=== PATIENT | female | born 1950 | race African-American/Black ===

== ENCOUNTER 2019-06-30 05:32 | Emergency (ER) | payer MEDICARE, OTHER ==
[2019-06-30 06:46] LABS: ABSOLUTE BASOPHILS # (AUTO) 0.1 10^3/uL (0.0-0.2); ABSOLUTE EOSINOPHILS # (AUTO) 0.2 10^3/uL (0.0-0.6); ABSOLUTE LYMPHOCYTES (AUTO) 1.8 10^3/uL (0.5-4.7); ABSOLUTE MONOCYTES (AUTO) 0.4 10^3/uL (0.1-1.4); ABSOLUTE NEUT (AUTO) 3.8 10^3/uL (1.7-8.2); BASOPHILS % (AUTO) 1.4 % (0-2); EOSINOPHILS % (AUTO) 2.8 % (0-6); HEMATOCRIT 39.5 % (36.0-47.0); HEMOGLOBIN 13.1 g/dL (12.0-15.5); LYMPHOCYTES % (AUTO) 28.8 % (13-45); MEAN CORPUSCULAR HEMOGLOBIN 27.1 pg (27.0-33.4); MEAN CORPUSCULAR HGB CONC 33.1 g/dL (32.0-36.0); MEAN CORPUSCULAR VOLUME 82 fl (80-97); MONOCYTES % (AUTO) 6.8 % (3-13); PLATELET COUNT 220 10^3/uL (150-450); RED BLOOD COUNT 4.81 10^6/uL (3.72-5.28); RED CELL DISTRIBUTION WIDTH 15.4 % (11.5-14.0); SEGMENTED NEUTROPHILS % (AUTO) 60.2 % (42-78); TOTAL CELLS COUNTED % (AUTO) 100 %; WHITE BLOOD COUNT 6.4 10^3/uL (4.0-10.5)
--- NOTE | 2019-06-30 06:57 | RADIOLOGY REPORT (SQ) ---
Chest 2 view on 06/30/2019 at 6:42 AM CLINICAL INDICATION: Chest pain COMPARISON: 11/15/2015 FINDINGS: There is evidence of calcified granulomatous disease in the chest. The lungs are otherwise clear. Cardiac, hilar and mediastinal contours are within normal limits. Pulmonary vascularity is within normal limits. Degenerative changes are noted in the spine. IMPRESSION: No acute disease.
[2019-06-30 07:10] LABS: ALBUMIN 4.2 g/dL (3.5-5.0); ALKALINE PHOSPHATASE 73 U/L (38-126); ANION GAP 9 (5-19); ASPARTATE AMINO TRANSFERASE 42 U/L (14-36); BILIRUBIN,TOTAL 0.5 mg/dL (0.2-1.3); BLOOD UREA NITROGEN 13 mg/dL (7-20); CALCIUM 9.7 mg/dL (8.4-10.2); CARBON DIOXIDE 26 mmol/L (22-30); CHLORIDE 106 mmol/L (98-107); CREATINE KINASE 1133 U/L (30-135); GLUCOSE 114 mg/dL (75-110); POTASSIUM 4.1 mmol/L (3.6-5.0); TOTAL PROTEIN 7.6 g/dL (6.3-8.2)
[2019-06-30 07:22] LABS: CREATINE KINASE MB 8.11 ng/mL (<4.55); TROPONIN I < 0.012 ng/mL
--- NOTE | 2019-06-30 08:31 | ER Document Report ---
ED General - General Chief Complaint: Palpitations Stated Complaint: REPORTS RAPID HEART RATE,ABDOMINAL PAIN Time Seen by Provider: 06/30/19 08:14 Mode of Arrival: Ambulatory Information source: Patient TRAVEL OUTSIDE OF THE [place] IN LAST 30 DAYS: No - HPI Onset: Other - over the last 3 days Onset/Duration: Gradual Quality of pain: Burning Severity: Moderate Pain Level: 3 Associated symptoms: Chest pain, Other - burning in esophagus and mild pain with swallowing Exacerbated by: Food Relieved by: Denies Similar symptoms previously: No Recently seen / treated by doctor: No Notes: 69 year old female with a history of HTN and Hypothyroidism here for 3 days of a burning pain in her throat which moves down to her stomach. She has mild chest pain as well but she denies nausea, vomiting, radiation of chest pain, fevers, chills, sweats, shortness of breath, productive cough. The patient has no cardiac or pulmonary history but she has had her gallbladder removed. The patient says she had a normal stress test many years ago. The patient has never felt like this before. She tells me she was told by her PCP she may be developing CHF but she denies new leg edema or shortness of breath although she does sleep upright some. - Related Data Allergies/Adverse Reactions: clindamycin [Clindamycin] Allergy (Verified 09/22/11 09:09) diphenhydramine HCl [From Benadryl] Allergy (Verified 09/22/11 09:09) Home Medications: synthroid. baby asa. ziac Past Medical History - General Information source: Patient - Social History Smoking Status: Never Smoker Frequency of alcohol use: None Drug Abuse: None Family History: Reviewed & Not Pertinent Patient has suicidal ideation: No Patient has homicidal ideation: No - Past Medical History Cardiac Medical History: Reports: Hx Hypertension Pulmonary Medical History: Reports: None EENT Medical History: Reports: None Neurological Medical History: Reports: None Endocrine Medical History: Reports: Hx Hypothyroidism Renal/ Medical History: Reports: None Malignancy Medical History: Reports: None GI Medical History: Reports: None Musculoskeletal Medical History: Reports None Past Surgical History: Reports: Hx Cholecystectomy, Hx Hysterectomy - Immunizations Hx Diphtheria, Pertussis, Tetanus Vaccination: Yes Review of Systems - Review of Systems Constitutional: No symptoms reported EENT: No symptoms reported Cardiovascular: Chest pain Respiratory: No symptoms reported Gastrointestinal: Other - discomfort when swallowing Genitourinary: No symptoms reported Female Genitourinary: No symptoms reported Musculoskeletal: No symptoms reported Skin: No symptoms reported Hematologic/Lymphatic: No symptoms reported Neurological/Psychological: No symptoms reported Physical Exam - Vital signs Vitals: Temp Pulse Resp BP Pulse Ox 97.4 F 64 16 147/74 H 97 06/30/19 05:38 06/30/19 05:38 06/30/19 05:38 06/30/19 05:38 06/30/19 05:38 - Notes Notes: GENERAL: Well-appearing, well-nourished and in no acute distress. HEAD: Atraumatic, normocephalic. EYES: Pupils equal round and reactive to light, extraocular movements intact, sclera anicteric, conjunctiva are normal. ENT: TMs normal, nares patent, oropharynx clear without exudates. Moist mucous membranes. NECK: Normal range of motion, supple without lymphadenopathy or JVD. LUNGS: Breath sounds clear to auscultation bilaterally and equal. No wheezes rales or rhonchi. HEART: Regular rate and rhythm without murmurs, rubs or gallops. ABDOMEN: Soft, nontender, normoactive bowel sounds. No guarding, no rebound. No masses appreciated. EXTREMITIES: Normal range of motion, no pitting or edema. No clubbing or cyanosis. NEUROLOGICAL: Cranial nerves II through XII grossly intact. Normal speech, normal gait. PSYCH: Normal mood, normal affect. SKIN: Warm, Dry, normal turgor, no rashes or lesions noted. Course - Re-evaluation Re-evalutation: 06/30/19 08:38 The patient does not have a lot of risk factors for ACS. The patient has had a negative stress test but it sounds like it was many years ago. EKG today shows diffuse T wave inversions but I have no old EKGs for comparison. Patient has had 3 days of chest burning which she thinks is coming from her Esophagus. The patient's Trop is completely negative but her CPK is elevated (although patient is not having muscle cramps or pains). Patient's BNP and chest Xray are normal. 06/30/19 09:54 The patient says her symptoms have gone away after a GI Cocktail. It sounds like her symptoms are from GERD. Patient told to start taking a PPI and to follow up with her PCP and possibly with GI and Cardiology. Patient has T wave inversions which I am not sure are old or new. Patient understood everything that was done today and the need for her to follow up. - Vital Signs Vital signs: Temp Pulse Resp BP Pulse Ox 97.4 F 64 16 147/74 H 97 06/30/19 05:38 06/30/19 05:38 06/30/19 05:38 06/30/19 05:38 06/30/19 05:38 - Laboratory Result Diagrams: 06/30/19 06:23 06/30/19 06:23 Laboratory results interpreted by me: 06/30/19 06/30/19 06/30/19 06:23 06:23 06:23 RDW 15.4 H Glucose 114 H AST 42 H Creatine Kinase 1133 H CK-MB (CK-2) 8.11 H - EKG Interpretation by Me EKG shows normal: Sinus rhythm, [place], Intervals Rate: Normal Rhythm: NSR Additional EKG results interpreted by me: 06/30/19 08:17 T wave inversions in I, aVL ,V1, V2, V3, V4, V5, V6 Discharge - Discharge Clinical Impression: Palpitation GERD (gastroesophageal reflux disease) Qualifiers: Esophagitis presence: without esophagitis Qualified Code(s): K21.9 - Gastro- esophageal reflux disease without esophagitis Condition: Stable Disposition: HOME, SELF-CARE Additional Instructions: Start taking an over the counter PPI (proton pump inhibitor) such as Portonix, Prilosec, etc. You can also use immediate relief acid reflux medications such as Tums and Maalox. Follow up with your primary care doctor and go over your EKG and your acid reflux symptoms with him/her. You may want referral to a GI doctor if symptoms persist and you may need referral to a [facility] for a stress test if your EKG findings are new today.
[2019-06-30] MEDS ORDERED: METOCLOPRAMIDE HCL ORAL SOLN 10 MG/10 ML UDCUP PO ONE (08:32)
[2019-06-30] MEDS ORDERED: LIDOCAINE 2% VISCOUS SOLN 15 ML UDCUP PO ONE (08:32)
[2019-06-30] MEDS ORDERED: MAG HYDROX/AL HYDROX/SIMETH SUSP 30 ML UDCUP PO ONE (08:32)
--- NOTE | 2019-06-30 09:47 | EKG REPORT ---
SEVERITY:- ABNORMAL ECG - SINUS RHYTHM PROBABLE LEFT VENTRICULAR HYPERTROPHY : Confirmed by: López Barreto 30-Jun-2019 09:46:20
[2019-06-30 10:28] VITALS: BP 152/88
== END 2019-06-30 10:34 | disposition home or self-care (01) ==
LOC: ER 05:32
DX: R00.2 Palpitations (principal); K21.9 Gastro-esophageal reflux disease without esophagitis; R10.13 Epigastric pain; R13.10 Dysphagia, unspecified; I10 Essential (primary) hypertension; R07.9 Chest pain, unspecified; Z88.8 Allergy status to other drugs, medicaments and biological substances
CPT/HCPCS: 93005; 99285; 36415; 82553; 82550; 83690; 83735; 84443; 85025; 80053; 84484; 83880; 71046; 93010; J3490; A9270 ×2